=== PATIENT | male | born 1960 | race Caucasian/White ===

== ENCOUNTER 2017-06-14 14:15 | Emergency (ER) | payer OTHER ==
[~2017-06-14] VITALS: Ht 170.2 cm; Wt 76.5 kg
[~2017-06-14 14:15] MED LIST: CORTIS10A RIGHT EAR; Z.0.NO CURRENT MEDS
[2017-06-14 14:32] VITALS: BP 158/87; PULSE 82; RESP 16; TEMP 98.8; O2SAT 93
--- NOTE | 2017-06-14 15:57 | PD ---
HPI Chief Complaint: Laceration/Skin Injury Time Seen by Provider: 15:15 Travel History International Travel<30 days: No Contact w/Intl Traveler<30days: No Traveled to known affect area: No History of Present Illness HPI 57-year-old male here with laceration to the right hand dorsal aspect. Laceration was caused by a sharp edge of a piece of tempered glass that he was installing. The glass did not break and he does not believe there is possibility of any retained foreign body. He simply grazed a sharp edge which cut his hand. He originally went to a local urgent care who sent him here for closure. He denies paresthesia or weakness of the extremity. He has full range of motion and normal sensation in the hand. His tetanus immunization is unknown. He has no other complaints. [facility] Past Medical History Medical History: Denies Significant Hx Diminished Hearing: No Tetanus Vaccination: Unknown Influenza Vaccination: No ?: Not Past Surgical History Other Surgery: Yes (left hand) Social History Alcohol Use: No Tobacco Use: Yes (1.5 PPD) Substance Use: No Allergies-Medications (Allergen,Severity, Reaction): Coded Allergies: No Known Allergies (Verified Adverse Reaction, Unknown, 06/14/17) Reported Meds & Prescriptions Reported Meds & Active Scripts Active Review of Systems Except as stated in HPI: all other systems reviewed are Neg General / Constitutional: No: Fever Eyes: No: Visual changes HENT: No: Headaches Cardiovascular: No: Chest Pain or Discomfort Respiratory: No: Shortness of Breath Gastrointestinal: No: Abdominal Pain Physical Exam Narrative GENERAL: Alert well-appearing male in no distress. SKIN: 2 cm laceration right hand dorsal aspect. No active bleeding HEAD: Normocephalic. EYES: No injection or drainage. NECK: Supple, trachea midline. No JVD or lymphadenopathy. CARDIOVASCULAR: Regular rate and rhythm RESPIRATORY: No accessory muscle use. MUSCULOSKELETAL: No cyanosis, or edema. Right hand: 2 cm laceration to the dorsal aspect. No active bleeding. No tendon injury visualized. Patient can fully flex and extend all digits. Normal sensation. Brisk cap refill. Data Data Last Documented VS Vital Signs Date Time Temp Pulse Resp B/P (MAP) Pulse Ox O2 Delivery O2 Flow Rate FiO2 06/14/17 14:32 98.8 82 16 158/87 (110) 93 MDM Medical Decision Making Medical Screen Exam Complete: Yes Emergency Medical Condition: Yes Differential Diagnosis Laceration, tendon injury, ligament injury, vascular injury Narrative Course 57-year-old male here with laceration to the right hand. The extremity is neurovascularly intact. Not suspect tendon injury. Laceration repair performed. Patient tolerated procedure well. Procedures Procedure Narrative LACERATION LOCATION: Hand LENGTH: 2 cm NUMBER OF STITCHES/RIP: 4 REPAIR: The area of the laceration was prepped with Betadine and sterilely draped. The laceration was infiltrated with 1% lidocaine with epi. The wound was copiously irrigated and explored without evidence of foreign body, tendon injury or neurovascular injury. The wound was closed using 5-0 Ethilon. This was a will layer repair. A sterile dressing was applied. The patient was advised to keep the dressing clean and dry. Patient tolerated the procedure well. Diagnosis Primary Impression: Laceration of right hand Qualified Codes: S61.411A - Laceration without foreign body of right hand, initial encounter Referrals: Primary Care Physician Additional Instructions: Sutures need to be removed in 7-10 days. Do not submerge the wound in water. Keep the dressing in place as we discussed the next 1-2 days. Follow-up with her primary doctor for recheck. Return if he developed new or worsening symptoms. Disposition: 01 DISCHARGE HOME Condition: Stable Irene Hameed Jun 14, 2017 15:57
[2017-06-14] MEDS ORDERED: TETANUS/DIPHTHERIA TOXOID ADULT 0.5 ML VIAL IM ONE (16:45)
== END 2017-06-14 16:48 | disposition home or self-care (01) ==
LOC: PHEFT 14:15
DX: S61.411A Laceration without foreign body of right hand, initial encounter (principal); F17.200 Nicotine dependence, unspecified, uncomplicated; Z23 Encounter for immunization; W25.XXXA Contact with sharp glass, initial encounter; Y99.0 Civilian activity done for income or pay
CPT/HCPCS: 12001; 90471; 90714

== ENCOUNTER 2017-06-21 17:31 | Emergency (ER) | payer OTHER ==
[~2017-06-21] VITALS: Ht 170.2 cm; Wt 76.0 kg
[2017-06-21 17:35] VITALS: BP 162/88; PULSE 88; RESP 16; TEMP 98.9; O2SAT 98
--- NOTE | 2017-06-21 18:23 | PD ---
HPI Chief Complaint: Wound/Suture/Staple Re-Check Time Seen by Provider: 17:40 Travel History International Travel<30 days: No Contact w/Intl Traveler<30days: No Traveled to known affect area: No History of Present Illness HPI 57-year-old male presents for reevaluation of right hand laceration. The patient was seen here on June 14 with laceration to the dorsal right hand which was caused by a sharp edge of a piece [place] glass. Cutaneous sutures were placed. The patient reports that 2 days later he developed some numbness distal to the laceration site along the lateral aspect of the right third finger. He has also felt some crepitus along the extensor surface of the right second metacarpal with extension of his finger. He reports slight weakness in the right second finger at extension as well. He has no other complaints at this time. [facility] Past Medical History Diminished Hearing: No Tetanus Vaccination: < 5 Years Past Surgical History Other Surgery: Yes (left hand) Social History Alcohol Use: No Tobacco Use: Yes (1.5 PPD) Substance Use: No Allergies-Medications (Allergen,Severity, Reaction): Coded Allergies: No Known Allergies (Verified Adverse Reaction, Unknown, 06/21/17) Reported Meds & Prescriptions Reported Meds & Active Scripts Active No Active Prescriptions or Reported Medications Review of Systems General / Constitutional: No: Fever, Chills Musculoskeletal: Positive: Pain, No: Limited ROM Skin: Positive Other (positive for laceration) Neurologic: Positive: Paresthesia Physical Exam Narrative GENERAL: Well-developed well-nourished male in no acute distress SKIN: Warm and dry. There is a 2 cm laceration on the dorsal surface of the right hand overlying the proximal second metacarpal. Well approximated, mild surrounding redness. No wound dehiscence. HEAD: Atraumatic. Normocephalic. EYES: Pupils equal and round. No scleral icterus. No injection or drainage. ENT: No nasal bleeding or discharge. Mucous membranes pink and moist. NECK: Trachea midline. No JVD. CARDIOVASCULAR: Regular rate and rhythm. No murmur appreciated. RESPIRATORY: No accessory muscle use. Clear to auscultation. Breath sounds equal bilaterally. MUSCULOSKELETAL: Skin as noted above. There is some crepitus along the extensor tendon of the right second metacarpal. There is slight weakness on full extension of the right second finger. He reports some subjective numbness on palpation of the lateral right third finger. NEUROLOGICAL: Awake and alert. No obvious cranial nerve deficits. Motor grossly within normal limits. Normal speech. Data Data Last Documented VS Vital Signs Date Time Temp Pulse Resp B/P (MAP) Pulse Ox O2 Delivery O2 Flow Rate FiO2 06/21/17 17:35 98.9 88 16 162/88 (112) 98 Orders Orders Hand, Limited (2vws) (06/21/17 ) Splint Or Brace Apply/Monitor (06/21/17 18:42) Ed Discharge Order (06/21/17 18:57) [facility] Medical Decision Making Medical Screen Exam Complete: Yes Emergency Medical Condition: Yes Medical Record Reviewed: Yes Differential Diagnosis Cutaneous laceration, cellulitis, partial extensor tendon laceration, neurovascular injury Narrative Course The patient's history and examination findings are concerning for possible partial extensor tendon injury, possible peripheral nerve involvement. I discussed the findings and the history with the on-call hand surgeon Dr. Isabel he would like an x-ray and he will be happy to follow up with the patient in his office early next week. Diagnosis Primary Impression: Laceration of right hand Referrals: Enrique Isabel MD Additional Instructions: Follow-up with hand specialist early next week, call his office to make an appointment. Do not remove the splint. Medication as prescribed. Return for any emergent medical conditions. Med/Other Pt SpecificInfo: Prescription(s) given Scripts Cephalexin (Keflex) 500 Mg Capsule 500 MG PO TID for Infection for 5 Days, CAP 0 Refills Prov: Teresa Parish MD 06/21/17 Disposition: 01 DISCHARGE HOME Condition: Stable Raymond Louis Jun 21, 2017 18:23
--- NOTE | 2017-06-21 18:40 | RADRPT ---
EXAM DATE/TIME: 06/21/2017 18:28 [facility] COMPARISON: No previous studies available for comparison. INDICATIONS : Right hand numbness around sutured area post 1 week. MEDICAL HISTORY : Previous right hand laceration SURGICAL HISTORY : None. ENCOUNTER: Initial ACUITY: 1 week PAIN SCORE: 2/10 LOCATION: Right upper extremity FINDINGS: Two view examination of the right hand demonstrates no soft tissue swelling, dislocation, or fracture . The joint spaces are maintained. Bony mineralization is normal. CONCLUSION: Unremarkable limited examination of the right hand. Marciano Holm Jr., MD on June 21, 2017 at 18:37 Board Certified Radiologist. This report was verified electronically.
[2017-06-21] MEDS ORDERED: CEPH-460 PO (18:57)
== END 2017-06-21 19:22 | disposition home or self-care (01) ==
LOC: PHEFT 17:31
DX: S61.212A Laceration without foreign body of right middle finger without damage to nail, initial encounter (principal); R20.0 Anesthesia of skin; R53.1 Weakness; Z72.0 Tobacco use; W25.XXXA Contact with sharp glass, initial encounter
CPT/HCPCS: 29125; 73120